=== PATIENT | male | born 1955 | race Caucasian/White ===

== ENCOUNTER → 2020-01-30 | Emergency (ER) | payer OTHER ==
[~2020-01-30] VITALS: Ht 172.7 cm; Wt 95.3 kg
[~2020-01-30] MED LIST: ACID REDUCER20 M1 PO; BYSTOLIC5 MG PO; LIPITOR20 MG PO; MULTI VITAMIN1 EACH PO; OMEGA 3 1,0001 EACH PO; TAMS0.4C PO
== END | disposition home or self-care (01) ==
LOC: ER 20:16
DX: R42 Dizziness and giddiness (principal)